=== PATIENT | male | born 1940 | race Caucasian/White ===

== ENCOUNTER → 2017-06-10 | Outpatient (CLI) | payer MEDICARE, OTHER ==
[~2017-06-10] MED LIST: ADVAIR 10028 PUFF/IN IN; ASPERDRINK81 MG PO; ATENOLOL25 MG PO; AVELOX400 MG PO; CETIRIZINE HCL10 MG PO; CO ENZYME Q-1050 MG PO; DIAZEPAM5 MG PO; FLUTICASONE 50M16 GM; FOLIC ACID 1MG T1 MG PO; GABAPENTIN300 M1 PO; IPRATROPIUM BRO15 ML NS; ISOSORBIDE MONO30 MG PO; LASIX 20MG. TAB20 MG PO; LEVOTHYROXINE0.1 MG PO; METHYLPRED DP4 MG PO; METOPROLOL SUCC50 M1 PO; NAPROSYN 500MG500 MG PO; NATURE S BLEND PO; NEXIUM40 MG PO; NITROSTAT 0.4M0.4 MG SL; PANTOPRAZOLE SO40 MG PO; PLAVIX75 MG PO; TESSALON PERLE100 MG PO
[2017-06-10 14:09] VITALS: BP 165/75
[2017-06-10 14:11] VITALS: BP 165/75
--- NOTE | 2017-06-13 16:56 | RADIOLOGY REPORT PS360 ---
US AORTA (RETROPERITONEAL) Ordering Physician: TAHIR HOUSER MD Patient Age: 76 years: Male HISTORY: AAA TECHNIQUE: Ultrasound lower bowel aorta transabdominal scanning COMPARISON :Previous ultrasound abdomen 02/05/2013.. Also CT chest from today which includes upper abdomen FINDINGS The superior most abdominal aorta is normal in caliber measuring 1.8 cm diameter. Just below the renal arteries encounter focal area of aneurysmal dilatatio. I although the measurements are somewhat confusing on submitted images,, I believe this aneurysm measures up to 3.95 cm transverse and 3.9 cm AP X just over 4 cm length... The technologist measures a additional echogenic line posterior aorta, which I believe is most likely related to anterior lumbar spine, particularly when compared back to the 2014 CTA with best delineate structures through this region. Given that the aneurysm approaching 4 cm, may want to to consider a follow-up CT abdomen to more precisely evaluate. Without contrast would be adequate for sizing. With contrast preferred if planning treatment procedure. . The iliacs appear mildly dilated measuring up to 1.1 cm each on these images IMPRESSION Focal infrarenal abdominal aortic aneurysm Although its exact limits/ margins are somewhat unclear, I believe it measures up to nearly 4 cm diameter maximally based on my measurements and when compared to previous studies... Given given its size is at 4 cm in width overall features, consider follow-up CT to delineate its size & margins.. As discussed in text
--- NOTE | 2017-06-13 18:24 | RADIOLOGY REPORT PS360 ---
CT CHEST W/O CONTRAST Ordering Physician: TAHIR HOUSER MD Patient Age: 76 years: Male HISTORY: SOB, HIGH RISK MEDICATION USE . Short of breath chest pain history of COPD. TECHNIQUE: Spiral CT scanning performed the chest with sagittal coronal reconstructions on CT workstation . No IV contrast COMPARISON :Previous CT chest 11/06/2012 FINDINGS: MEDIASTINUM. Previous sternotomy CABG. Prominent mediastinal fat severely reflecting moderate superior mediastinal lipomatosis.. No significant lesions here.. Aorta normal caliber. . Benign-appearing fat lymph node right precarinal region stable measuring 15 mm MM 10 mm. Other calcified nodes seen subcarinal region and anterior to the left bronchus as well as AP window. No change. No hilar adenopathy. LUNGS.No significant lung nodule or lung mass No focal pneumonia.. Fairly stable mild to moderate chronic changes bilateral. . Developing emphysematous changes. Right lung. Atelectatic changes with belen markings right infrahilar region. Some mild airway thickening and borderline bronchiectatic changes here. Most likely reflecting scarring from old inflammatory process. Left lung. Fibrotic changes and scarring left lung base along the left hemidiaphragm appear similar to previous studies from 2013 and best seen on sagittal views. No significant new findings. Thoracic spine chest wall appears similar with no lesions or rib fractures identified. IMPRESSION: CT chest reveals no acute findings COPD with chronic changes. Slight additional crowding markings and mild thickening airways right infrahilar region towards RLL, slightly more more evident on right than left. . otherwise lung cano appear & unchanged since prior study 2012
== END ==
LOC: RAD 06-09 09:30
DX: R06.02 Shortness of breath (principal); J40 Bronchitis, not specified as acute or chronic; J44.9 Chronic obstructive pulmonary disease, unspecified; I71.4 Abdominal aortic aneurysm, without rupture; Z79.899 Other long term (current) drug therapy

== ENCOUNTER → 2017-07-11 | Outpatient (CLI) | payer MEDICARE, OTHER ==
[2017-07-11 10:24] LABS: BUN 6 mg/dL (7-18); GFR (ESTIMATED) 72 ML/MIN (>60)
--- NOTE | 2017-07-12 12:51 | RADIOLOGY REPORT PS360 ---
CTA ABD/PELVIS 3-D volume rendering CTA reconstruction images included Ordering Physician: TAHIR HOUSER MD Patient Age: 76 years: Male HISTORY: AAA TECHNIQUE: Helical CT scanning performed lower chest, abdomen and in the pelvis following 1 cc [id number] followed by 40 and normal saline. Sagittal coronal and axial reconstruction images on CT workstation. In addition 3-D volume rendering images with shading performed on radiologist independent workstation. CTA CPT COMPARISON :Previous CTA abdomen 05/08/2015 FINDINGS Aneurysm lower abdominal aorta leading to the bifurcation again seen and measures up to nearly 3.85 cm AP x 3.65 cm transverse on today's study.Previously this aneurysm measures up to 3.7 cm maximally and thus very minor incrementally larger than on the CT 2015 exam . Eccentric anterior bulge of this injury aneurysm yields a combine saccular/fusiform appearance given its its anterior bulge but obtuse margins. It septation like appearance entire length within it-question localized area dissection associated.. Lower thoracic aorta with Minimal plaque and calcified plaque plaque. At the abdominal aorta Only minor calcified plaque at minor stenosis origin of renal arteries and celiac artery.\ Iliac arteries appear normal in caliber with minimal calcified plaque at origin of Lung bases. No acute findings. Early emphysematous changes at chest with calcified nodes subcarinal region. Heart normal size. The previous sternotomy. Generous marginal osteophytes lower T-spine and through lumbar region. Exuberant facet hypertrophy L5/S1 & L4/5 on encroaches upon foramen & narrows the spinal canal.Diminishing facet hypertrophy above this Liver, pancreas, adrenals, and early enhancement spleen unremarkable satisfactory. Kidneys. Right kidney Small benign-appearing cyst from lateral midportion right kidney is slightly larger measuring up to 15 mm... Small 6 mm benign-appearing cyst anterior right kidney Left kidney: small 1 cm nodule off the midportion left kidney. Previously this was quite dense compatible with a hemorrhagic cyst but seems to have decreased in density in interval and shows slight enlargement. Most likely a involving hemorrhagic cyst however density remains fairly high and would benefit from follow-up particularly with slight enlargement. Recommend CT abdomen for kidneys in 6 months which could also follow the aorta PELVIS: Upper normal wall thickness urinary bladder.. . GI TRACT small bowel unremarkable on today's study moderate fluid no dilatation upper normal wall thickness proximal small bowel. Colonic diverticulosis most evident sigmoid colon.. There is no evidence of diverticulitisor appendicitis.. . IMPRESSION: 1. Lower abdominal aortic aneurysm 3.8 cm diameter maximally.-1 mm larger than previous 2015 CT abdomen.. Again note the irregular or septated appearance of this eccentric aneurysm as discussed in text the similar to previous study. 2. Left kidney. 1 cm most likely small hyperdense hemorrhagic cyst of midportion left kidney.. However since this is slightly larger and indeterminate density would benefit from follow-up CT 6-9 months.. This follow-up CT could also again evaluate AAA Right kidney with 2 benign appearing cyst. 15 mm cyst midportion right kidney is slightly larger. 3. Diverticulosis is most evident sigmoid colon. No diverticulitis. 4. Other minor observations in text
== END ==
LOC: RAD 10:00
PROVIDERS: Thoracic Surgery (Cardiothoracic Vascular Surgery)
DX: I71.4 Abdominal aortic aneurysm, without rupture (principal)
CPT/HCPCS: Q9967